=== PATIENT | female | born 1970 | race Caucasian/White ===

== ENCOUNTER 2025-06-14 08:27 | Outpatient (CLI) | payer BC, SELFPAY ==
--- NOTE | ~2025-06-14 | CT_ITS ---
EXAMINATION: CT pelvis wo con COMPARISON: None HISTORY: Right groin pain x 3 months, no injury TECHNIQUE: Axial images were obtained without IV contrast. Sagittal, coronal reconstruction images were obtained from the axial views. CT scan performed using dose optimization techniques including the following automated exposure control; adjustment of mA and/or kV; use of iterative reconstruction technique. Automatic exposure control was used to reduce radiation dose. Permanent radiation dose record is archived to PACS. FINDINGS: Soft tissues are unremarkable. No sclerotic or lytic lesions. Minimal degenerative changes of the acetabular femoral joints, symphysis pubis and sacroiliac joints. There is no gross aneurysm or lymphadenopathy. Visualized bladder appears unremarkable. There is no adnexal mass. No free fluid. Visualized bowel and mesentery appear unremarkable. IMPRESSION: 1. No etiology to explain the patient's right inguinal pain. Reviewed, dictated and finalized at location P.
== END 2025-06-14 08:28 | disposition home or self-care (01) ==
PROVIDERS: PCP Surgery; Visit Provider Surgery
DX: R10.31 Right lower quadrant pain (principal)
CPT/HCPCS: 72192